=== PATIENT | male | born 1970 | race Caucasian/White ===

== ENCOUNTER 2023-07-02 16:34 | Emergency (ER) | payer OTHER ==
[2023-07-02] MEDS ORDERED: Ketorolac 30 MG/ML SDV IM ONE (16:40)
[2023-07-02] MEDS ORDERED: Acetaminophen 500 MG Tab PO ONE (16:40)
== END 2023-07-02 17:07 | disposition home or self-care (01) ==
LOC: EDSEX → DL.ED 16:34
DX: S90.32XA Contusion of left foot, initial encounter (principal); W22.8XXA Striking against or struck by other objects, initial encounter; Y93.02 Activity, running; Y92.512 Supermarket, store or market as the place of occurrence of the external cause; Y99.0 Civilian activity done for income or pay
CPT/HCPCS: 73630-LT; 96372; 99282; 99283; A9270-GY; J1885

== ENCOUNTER 2024-07-17 05:27 | Day surgery (SDC) | payer BC, OTHER ==
[2024-07-17] MEDS: Dextrose 5%-0.45% NaCl 1,000 ML IV SCH (05:46)
[2024-07-17] MEDS ORDERED: fentaNYL 100 MCG/2 ML SDV ONE (06:15)
[2024-07-17] MEDS ORDERED: Midazolam 1 MG/ML 2 ML SDV ONE ×2 (06:15→06:37)
[2024-07-17] MEDS ORDERED: Midazolam 1 MG/ML 2 ML SDV IV ONE (06:15)
[2024-07-17] MEDS ORDERED: fentaNYL 100 MCG/2 ML SDV IV ONE (06:15)
[2024-07-17] MEDS: fentaNYL 100 MCG/2 ML SDV IV ONE ×2 (06:32→06:33)
[2024-07-17] MEDS: Midazolam 1 MG/ML 2 ML SDV IV ONE ×3 (06:33→06:35)
== END 2024-07-17 08:25 | disposition home or self-care (01) ==
LOC: DL.ENDO 05:27
PROVIDERS: ATTEND Internal Medicine Gastroenterology
DX: K31.89 Other diseases of stomach and duodenum (principal); F17.210 Nicotine dependence, cigarettes, uncomplicated
CPT/HCPCS: 43239; J2250; J3010; J7799

== ENCOUNTER 2024-08-14 06:31 | Day surgery (SDC) | payer BC, OTHER ==
[~2024-08-14 06:31] MED LIST: Midazolam 1 MG/ML 2 ML SDV IV ONE; Midazolam 1 MG/ML 2 ML SDV ONE; fentaNYL 100 MCG/2 ML SDV IV ONE; fentaNYL 100 MCG/2 ML SDV ONE
[2024-08-14] MEDS: Dextrose 5%-0.45% NaCl 1,000 ML IV SCH (06:49)
[2024-08-14] MEDS: fentaNYL 100 MCG/2 ML SDV IV ONE ×4 (07:34→07:43)
[2024-08-14] MEDS: Midazolam 1 MG/ML 2 ML SDV IV ONE ×6 (07:35→07:40)
== END 2024-08-14 09:36 | disposition home or self-care (01) ==
LOC: DL.ENDO 06:31
PROVIDERS: ATTEND Internal Medicine Gastroenterology
DX: Z12.11 Encounter for screening for malignant neoplasm of colon (principal); K64.8 Other hemorrhoids
CPT/HCPCS: 45378; J2250; J3010; J7799